=== PATIENT | female | born 1975 | race African-American/Black ===

== ENCOUNTER 2016-06-02 02:14 | Emergency (ER) | payer MEDICAID ==
[~2016-06-02] VITALS: Ht 165.1 cm; Wt 93.0 kg
[~2016-06-02 02:14] MED LIST: ALBU17AE26
[2016-06-02 02:36] VITALS: BP 107/59
== END 2016-06-02 04:49 | disposition left against medical advice (07) ==
LOC: ER 02:47
DX: R10.9 Unspecified abdominal pain (principal); R11.10 Vomiting, unspecified; K59.00 Constipation, unspecified; J45.909 Unspecified asthma, uncomplicated; J44.9 Chronic obstructive pulmonary disease, unspecified; Z98.51 Tubal ligation status; Z90.49 Acquired absence of other specified parts of digestive tract; Z98.890 Other specified postprocedural states; F17.200 Nicotine dependence, unspecified, uncomplicated; Z88.0 Allergy status to penicillin

== ENCOUNTER 2016-06-20 11:29 | Emergency (ER) | payer MEDICAID ==
[~2016-06-20] VITALS: Ht 170.2 cm; Wt 90.0 kg
[2016-06-20] MEDS ORDERED: KETOROLAC 30MG/ML VIAL IV STA (12:00)
[2016-06-20] MEDS ORDERED: TETANUS, DIPHTHERIA, PERTUSSIS VAC/PF 0.5ML (>7YR OLD) IM ONE (12:00)
[2016-06-20 12:26] LABS: HEMATOCRIT. 40.2 % (36.0-48.0); HEMOGLOBIN. 13.4 g/dL (12.0-16.0); MEAN CORPUSCULAR HEMOGLOBIN 31.1 pg (28.0-32.0); MEAN CORPUSCULAR HGB CONC 33.4 g/dL (31.0-37.0); MEAN CORPUSCULAR VOLUME 93.2 fL (81.0-99.0); PLATELET 219 x1000/uL (130-400); RED BLOOD CELL COUNT 4.32 mill/uL (4.2-5.4); RED CELL DISTRIBUTION WIDTH 13.3 % (11.6-14.6); WHITE BLOOD COUNT 7.6 x1000/uL (4.5-11.0)
[2016-06-20 12:28] LABS: CLARITY URINE CLOUDY (CLEAR); COLOR URINE YELLOW (YELLOW); GLUCOSE URINE NEGATIVE (NEGATIVE); KETONES URINE NEGATIVE (NEGATIVE); LEUKOCYTE ESTERASE URINE NEGATIVE (NEGATIVE); NITRITE URINE NEGATIVE (NEGATIVE); OCCULT BLOOD URINE NEGATIVE (NEGATIVE); PH URINE 5.5 (4.5-8.0); PROTEIN URINE NEGATIVE (NEGATIVE); SPECIFIC GRAVITY URINE 1.028 (1.005-1.030); UROBILINOGEN URINE 0.2 E.U./dL (0.2-1.0)
[2016-06-20 12:30] LABS: CHLORIDE 109 mEq/L (98-107); DIFFERENTIAL COMMENT 1
[2016-06-20 12:31] LABS: INDEX HEMOLYSI 1 (1-3); INDEX ICTERIC 1 (1-4); INDEX LIPEMIC 1 (1-3)
[2016-06-20 12:36] LABS: HCG SCREEN NEGATIVE
[2016-06-20 12:40] LABS: INR 1.2; PARTIAL THROMBOPLASTIN TIME 23.5 sec (24.0-34.0); PROTHROMBIN TIME 12.7 sec
[2016-06-20 12:41] LABS: ALANINE AMINOTRANSFERASE 29 IU/L (13-61); ALBUMIN 3.4 g/dL (3.4-5.0); ANION GAP 10; CALCIUM 8.8 mg/dL (8.5-10.1); CARBON DIOXIDE 27 mEq/L (21-32); LIPASE 96 IU/L (73-393); UREA NITROGEN BLOOD 13 mg/dL (7-21); eGFR > 60 mL/min (>60)
[2016-06-20 12:53] LABS: AMORPHOUS SEDIMENT URINE 2+ /lpf; BACTERIA URINE TRACE; MUCUS URINE 2+ /lpf (< = 2+); RBC URINE NONE SEEN /hpf (0-2); SQUAMOUS EPITHELIAL CELL URINE 3+ /lpf (RARE/1+)
[2016-06-20 13:23] LABS: PLATELET ESTIMATE NORMAL
[2016-06-20 14:34] VITALS: BP 120/67
[2016-06-20] MEDS ORDERED: HYDROCODONE/ACETAMINOPHEN 5/325MG TABLET PO ONE (15:00)
== END 2016-06-20 15:39 | disposition home or self-care (01) ==
LOC: ER 11:42
DX: S20.112A Abrasion of breast, left breast, initial encounter (principal); R10.84 Generalized abdominal pain; J45.909 Unspecified asthma, uncomplicated; J44.9 Chronic obstructive pulmonary disease, unspecified; Z90.49 Acquired absence of other specified parts of digestive tract; Z98.51 Tubal ligation status; V43.52XA Car driver injured in collision with other type car in traffic accident, initial encounter; Y92.488 Other paved roadways as the place of occurrence of the external cause
CPT/HCPCS: 36415; 71010; 72100; 72170; 80053; 81001; 83690; 84703; 85007; 85027; 85610; 85730; 90471; 90715; 96374; 99285; J1885; Z7610

== ENCOUNTER 2023-01-03 21:23 | Emergency (ER) | payer MEDICAID ==
[~2023-01-03] VITALS: Ht 170.2 cm; Wt 90.0 kg
[2023-01-03 21:41] VITALS: BP 118/73; PULSE 92; RESP 16; TEMP 97.9; O2SAT 99
[2023-01-03 23:26] LABS: BASOPHILS % 0.8 % (0.0-2.0); EOSINOPHILS % 3.7 % (0.0-5.0); HEMOGLOBIN. 13.9 g/dL (12.0-16.0); LYMPHOCYTES % 26.8 % (20.0-50.0); MEAN CORPUSCULAR HEMOGLOBIN 33.9 pg (28.0-32.0); MEAN CORPUSCULAR HGB CONC 33.9 g/dL (31.0-37.0); MEAN CORPUSCULAR VOLUME 99.9 fL (81.0-99.0); MEAN PLATELET VOLUME 7.6 fl (7.4-10.4); NEUTROPHILS % 62.7 % (40.0-76.0); PLATELET 256 x1000/uL (130-400); RED CELL DISTRIBUTION WIDTH 13.5 % (11.6-14.6); WHITE BLOOD COUNT 6.7 x1000/uL (4.5-11.0)
[2023-01-03 23:31] LABS: CHLORIDE 108 mEq/L (98-107); INDEX HEMOLYSI 1 (1-3); INDEX ICTERIC 1 (1-4); INDEX LIPEMIC 1 (1-3); POTASSIUM 3.2 mEq/L (3.5-5.1); SODIUM 138 mEq/L (136-145)
[2023-01-03 23:33] LABS: HCG SCREEN NEGATIVE
[2023-01-03 23:42] LABS: ALANINE AMINOTRANSFERASE 27 IU/L (13-61); ALBUMIN 3.2 g/dL (3.4-5.0); ASPARTATE AMINOTRANSFERASE 22 IU/L (15-37); CALCIUM 8.9 mg/dL (8.5-10.1); CARBON DIOXIDE 22 mEq/L (21-32); CREATININE 0.8 mg/dL (0.6-1.3); ETHANOL BLOOD 48 mg/dL (<10); GLUCOSE 85 mg/dL (70-105); PROTEIN TOTAL 7.6 g/dL (6.0-8.3); TROPONIN I HIGH SENSITIVITY 4 ng/L (<54); UREA NITROGEN BLOOD 8 mg/dL (7-21)
[2023-01-03 23:58] LABS: BILIRUBIN TOTAL < 0.1 mg/dL (0.1-1.0)
== END 2023-01-04 01:24 | disposition home or self-care (01) ==
LOC: ER 21:23
DX: R10.816 Epigastric abdominal tenderness (principal); E87.6 Hypokalemia; J44.9 Chronic obstructive pulmonary disease, unspecified; Z88.0 Allergy status to penicillin; Z90.49 Acquired absence of other specified parts of digestive tract; Z98.890 Other specified postprocedural states; Z98.51 Tubal ligation status
CPT/HCPCS: 36415; 80053; 80320; 84484; 84703; 85025; 93005; 99284; G0480